=== PATIENT | male | born 1970 | race Caucasian/White ===

== ENCOUNTER 2018-04-27 07:48 | Day surgery (SDC) | payer OTHER ==
[~2018-04-27 07:48] MED LIST: ACETAMINOPHEN 1,000 MG/100 ML BTL IV ONE
[2018-04-27] MEDS ORDERED: ONDANSETRON HCL IV 4 MG/2 ML VIAL IVP ONE (07:49)
[2018-04-27] MEDS ORDERED: KETOROLAC 30 MG/ML VIAL IVP ONE (07:49)
[2018-04-27] MEDS ORDERED: DEXAMETHASONE 4 MG/ML 1ML VIAL IVP ONE (07:49)
[2018-04-27] MEDS ORDERED: SEVOFLURANE 250 ML INH ONE (07:49)
[2018-04-27] MEDS ORDERED: MIDAZOLAM HCL 2MG/2ML VIAL IV ONE (07:49)
[2018-04-27] MEDS ORDERED: HYDROMORPHONE HCL 2 MG/ML VIAL IV ONE (07:49)
[2018-04-27] MEDS ORDERED: FENTANYL PF 100MCG/2ML VIAL IV ONE (07:49)
--- NOTE | 2018-04-28 08:41 | Operative Note ---
DATE OF SURGERY: 04/27/2018 Surgeon: Brandon Peguero DO PREOPERATIVE DIAGNOSIS: Olecranon bursitis of the right elbow. POSTOPERATIVE DIAGNOSIS: Olecranon bursitis of the right elbow. OPERATION: Right olecranon bursectomy. DESCRIPTION OF PROCEDURE: This 48-year-old male was taken to the operating room and placed in the supine position on the operating room table. General anesthetic was administered. A bolster was placed underneath the right shoulder to help internally rotate the right arm. The right elbow was then prepped with Hibiclens and draped in the usual sterile fashion. It was exsanguinated and the tourniquet inflated to 250 mmHg. A "lazy S" type of incision was made over the olecranon bursa posteriorly in the right elbow, and dissection was carried down through the skin and subcutaneous tissue. The bursa was easily identified and this was surgically dissected and undermined from the attached overlying the skin. The bursa was completely excised. Inside the bursa were several soft tissue masses, one being approximately 1 to 1.5 cm and several (3) smaller ones in the vicinity of 2-3 mm. These were all removed and the wound was copiously irrigated. Hemostasis obtained with the electrocautery. The wound was closed with 3-0 Vicryl and a running 3-0 nylon suture. Sterile dressings were applied, and the patient was taken to the recovery room in satisfactory condition. GROSS PATHOLOGY: This patient demonstrated chronic olecranon bursitis with erythematous soft tissue masses within the olecranon bursa. This was all sent to pathology for evaluation. CC: MD TANYA Pendleton
== END 2018-04-27 10:35 | disposition home or self-care (01) ==
LOC: SUR 07:48
PROVIDERS: ATTEND Orthopaedic Surgery
DX: M70.21 Olecranon bursitis, right elbow (principal); F17.210 Nicotine dependence, cigarettes, uncomplicated
CPT/HCPCS: 24105; 01710; J1885; J2405; J3010; J1170